=== PATIENT | female | born 1950 | race Caucasian/White ===

== ENCOUNTER 2016-05-31 09:21 | Outpatient (RCR) | payer MEDICARE, OTHER | END 2016-06-28 13:21 | LOC: OPPGERO 09:21 | DX: F33.1 Major depressive disorder, recurrent, moderate (principal); F41.9 Anxiety disorder, unspecified ==

== ENCOUNTER 2016-06-29 09:00 | Outpatient (RCR) | payer MEDICARE, OTHER | END 2016-07-26 10:25 | LOC: OPPGERO 09:00 | DX: F33.1 Major depressive disorder, recurrent, moderate (principal); F41.9 Anxiety disorder, unspecified ==

== ENCOUNTER 2016-07-27 07:42 | Outpatient (RCR) | payer MEDICARE, OTHER | END 2016-08-26 15:07 | LOC: OPPGERO 07:42 | DX: F33.1 Major depressive disorder, recurrent, moderate (principal); F41.9 Anxiety disorder, unspecified ==

== ENCOUNTER → 2016-08-30 | Outpatient (CLI) | payer MEDICARE, OTHER | LOC: MAMMO 13:06 | DX: Z12.31 Encounter for screening mammogram for malignant neoplasm of breast (principal) | CPT/HCPCS: G0202 ==

== ENCOUNTER → 2016-09-27 | Day surgery (SDC) | payer MEDICARE, OTHER | LOC: MSO 09:34 | DX: Z12.11 Encounter for screening for malignant neoplasm of colon (principal); K21.9 Gastro-esophageal reflux disease without esophagitis; K57.30 Diverticulosis of large intestine without perforation or abscess without bleeding; K64.0 First degree hemorrhoids | CPT/HCPCS: 00810; J3010; J7030 ==

== ENCOUNTER → 2017-11-15 | Outpatient (CLI) | payer MEDICARE, OTHER | LOC: MAMMO 14:30 | DX: Z12.31 Encounter for screening mammogram for malignant neoplasm of breast (principal) ==

== ENCOUNTER → 2018-02-16 | Outpatient (CLI) | payer MEDICARE, OTHER | LOC: RAD 08:40 | DX: M79.661 Pain in right lower leg (principal); R22.41 Localized swelling, mass and lump, right lower limb ==

== ENCOUNTER → 2019-04-03 | Outpatient (CLI) | payer MEDICARE, OTHER | LOC: MAMMO 10:31 | DX: Z12.31 Encounter for screening mammogram for malignant neoplasm of breast (principal) ==

== ENCOUNTER → 2019-04-03 | Outpatient (CLI) | payer MEDICARE, OTHER | LOC: RAD 10:27 → MAMMO 11:30 | DX: Z13.820 Encounter for screening for osteoporosis (principal) ==

== ENCOUNTER → 2020-11-10 | Outpatient (CLI) | payer MEDICARE, OTHER | LOC: MAMMO 13:12 | DX: Z12.31 Encounter for screening mammogram for malignant neoplasm of breast (principal) ==

== ENCOUNTER → 2022-01-26 | Outpatient (CLI) | payer MEDICARE, OTHER | LOC: RAD 11:22 | DX: Z13.820 Encounter for screening for osteoporosis (principal) ==

== ENCOUNTER → 2022-01-26 | Outpatient (CLI) | payer MEDICARE, OTHER | LOC: MAMMO 10:50 | DX: Z12.31 Encounter for screening mammogram for malignant neoplasm of breast (principal) ==

== ENCOUNTER → 2023-02-01 | Outpatient (CLI) | payer MEDICARE, OTHER | LOC: MAMMO 13:35 | DX: Z12.31 Encounter for screening mammogram for malignant neoplasm of breast (principal) ==

== ENCOUNTER → 2023-04-27 | Outpatient (CLI) | payer MEDICARE, OTHER | LOC: RAD 11:58 | DX: M51.36 Other intervertebral disc degeneration, lumbar region (principal) ==

== ENCOUNTER 2023-05-16 10:04 | Outpatient (RCR) | payer MEDICARE, OTHER | END 2023-05-28 | disposition home or self-care (01) | LOC: PT | DX: M54.16 Radiculopathy, lumbar region (principal) ==

== ENCOUNTER 2023-05-30 08:00 | Outpatient (RCR) | payer MEDICARE, OTHER | END 2023-06-28 | disposition home or self-care (01) | LOC: PT | DX: M54.16 Radiculopathy, lumbar region (principal) ==

== ENCOUNTER 2023-07-03 08:00 | Outpatient (RCR) | payer MEDICARE, OTHER | END 2023-07-27 | disposition home or self-care (01) | LOC: PT | DX: M54.16 Radiculopathy, lumbar region (principal) ==

== ENCOUNTER → 2023-08-08 | Day surgery (SDC) | payer MEDICARE, OTHER ==
[~2023-08-08] VITALS: Ht 165.1 cm; Wt 68.0 kg
[~2023-08-08] MED LIST: Iohexol 300 - 10 ML VIAL IV ONE; Lidocaine PF 2% (20 MG/ML) 2 ML VIAL IJ ONE
== END | disposition home or self-care (01) ==
LOC: MSO 14:15
DX: M54.59 Other low back pain (principal); Z87.891 Personal history of nicotine dependence
CPT/HCPCS: J1100; Q9967

== ENCOUNTER → 2023-10-02 | Outpatient (CLI) | payer MEDICARE, OTHER | LOC: RAD 14:08 | DX: L03.031 Cellulitis of right toe (principal); S98.131A Complete traumatic amputation of one right lesser toe, initial encounter ==

== ENCOUNTER → 2024-02-05 | Outpatient (CLI) | payer MEDICARE, OTHER | LOC: MAMMO 12:48 | DX: Z12.31 Encounter for screening mammogram for malignant neoplasm of breast (principal) ==

== ENCOUNTER → 2024-07-01 | Outpatient (CLI) | payer MEDICARE, OTHER | LOC: RAD 11:22 → MAMMO 11:30 | DX: Z13.820 Encounter for screening for osteoporosis (principal); Z78.0 Asymptomatic menopausal state ==